=== PATIENT | female | born 2005 | race Caucasian/White ===

== ENCOUNTER 2025-07-26 02:11 | Inpatient (IN) | payer MEDICAID ==
[2025-07-25 19:00] VITALS: BP 106/75; PULSE 75; RESP 16; O2SAT 95
[~2025-07-26] VITALS: Ht 162.6 cm; Wt 62.0 kg
[2025-07-26] VITALS (19 sets, daily range): BP systolic 97–113; BP diastolic 56–79; PULSE 64–96; RESP 16–23; TEMP 98.1–98.5; O2SAT 95–100
[2025-07-26] MEDS ORDERED: PHISODERM TOP SOLN 240ML BTL TOP PRN (02:45)
[2025-07-26] MEDS ORDERED: LIDOCAINE 2%HCL (LOCAL ANESTH.) INJ 20ML MDV IJ PRN (02:45)
[2025-07-26] MEDS ORDERED: WITCH HAZEL-GLYCERIN PAD TOP PRN (02:45)
[2025-07-26] MEDS ORDERED: BUTORPHANOL TARTRATE 2 MG/1 ML VIAL IV PRN ×2 (02:45)
[2025-07-26] MEDS ORDERED: DERMOPLAST 60ML BOTTLE TOP PRN (02:45)
[2025-07-26] MEDS: LACTATED RINGER'S 1,000 ML IV SCH ×2 (03:23→06:00)
[2025-07-26] MEDS: PENICILLIN G POT 5MIL/D5 50ML 50 ML IV ONE (03:23)
[2025-07-26 03:41] LABS: Mean Corpuscular Volume 77.8 fL (80.0-100.0); Nucleated Red Blood Cells % 0.0 %
[2025-07-26 03:43] LABS: Hematocrit 28.9 % (36.0-46.0); Hemoglobin 9.7 g/dL (12.2-16.2); Mean Corpuscular Hemoglobin 26.0 pg (28.0-32.0)
[2025-07-26 04:01] LABS: Urine Protein, UAD Negative (Negative)
[2025-07-26 04:04] LABS: Albumin 3.7 g/dL (3.2-4.8); Anion Gap 12 (5-15); BUN/Creatinine Ratio 13.0 (10.0-20.0); Chloride 107 mmol/L (98-107); Glucose 77 mg/dL (74-106); Potassium 3.9 mmol/L (3.5-5.1); Sodium 139 mmol/L (136-145); Total Protein 6.2 g/dL (5.7-8.2)
[2025-07-26 04:05] LABS: Bilirubin, Total 0.4 mg/dL (0.2-1.0)
[2025-07-26 04:06] LABS: Alanine Aminotransferase < 9 U/L (7-40); Alkaline Phosphatase 197 U/L (46-116); Blood Urea Nitrogen 7 mg/dL (9-23); Calcium 8.7 mg/dL (8.7-10.4); Carbon Dioxide 20 mmol/L (20-31)
[2025-07-26 04:08] LABS: Amphetamine Screen, Urine Neg (NEGATIVE); Barbiturate Scree,Urine Neg (NEGATIVE); Benzodiazephine Screen, Urine Neg (NEGATIVE); Cannabinoid Screen, Urine Neg (NEGATIVE); Cocaine Screen, Urine Neg (NEGATIVE); Opiate Scree,Urine Neg (NEGATIVE); Phencyclidine Screen, Urine Neg (NEGATIVE)
--- NOTE | 2025-07-26 04:12 | DVH ---
MEDICAL RECORDS NUMBER: [id number] PROCEDURE: US OB ULTRASOUND COMP GTR 14 WKS Date: 07/26/2025 03:16 AM HISTORY: NO RECORDS COMPARISON: None TECHNIQUE: Transabdominal scanning is utilized. FINDINGS: Single viable intrauterine is identified with a heart rate of 115 beats per minute. Cephalic presentation is noted. Anterior grade 2 placenta is noted. Amniotic fluid index 11.4 cm is calculated. MVP equals 4.9 cm. anatomy appears unremarkable. Estimated age is 38 weeks 1 day based on this ultrasound. Estimated date of delivery is 08/08/2025. Multiple placental lakes are noted. Largest measures 1.9 cm x 1.8 cm x 8 mm. IMPRESSION: 1. Single viable intrauterine as above.
--- NOTE | 2025-07-26 04:13 | DVH ---
BIOPHYSICAL PROFILE HISTORY: BRADYCARDIA TECHNIQUE: Multiple transabdominal real-time grayscale sonographic images through the gravid uterus of the fetus with duplex Doppler color flow and M-mode spectral analysis. FINDINGS: BIOPHYSICAL PROFILE: breathing score: 2 movement score: 2 tone score: 2 Quantitative MAXX score: 2 (MAXX: 11.4 Cm.) Total score: 8/8 The cervix is not visualized. Single live fetus in cephalic presentation. heart rate 115 beats per minute. Grade 2 anterior placenta without previa or abruption. IMPRESSION: 1. Biophysical profile score: 8/8. heart rate measures 115 beats per minute.
[2025-07-26 04:51] LABS: INR 0.91 (0.9-1.15); Partial Thromboplastin Time 25.0 SEC (24.5-34.5); Prothrombin Time 9.7 sec (9.3-11.8)
--- NOTE | 2025-07-26 04:56 | DVHHP2 ---
OB CC & HPI Date Date of Admission: Jul 26, 2025 Patient Identification: : 1 Para: 0 EDC: Aug 11, 2025 EGA: 37-5/7 weeks Chief Complaints: Reason for admission: rupture of membranes Other reason for admission: Patient apparently was Dr. Asad Dee MDs patient scheduled to deliver in [place]. Patient states she went to [place] where they ruled out ruptured membranes. [place] stated they had no physician for delivering babies and she came here. Evaluated found to have gross ruptured membranes 1 cm 50% mid clear amniotic fluid admitted. History of Present Complaints care with Dr.D Marmolejo no records immediately available. Past Medical History Cardiac: No pertinent Hx Pulmonary: No pertinent Hx Central Nervous System: No pertinent Hx GI: No pertinent Hx Hemotology/Oncology: No pertinent Hx Hepatobiliary: No pertinent Hx Psychiatric: No pertinent Hx Musculoskeletal: No pertinent Hx Rheumotologic: No pertinent Hx Infectious Disease: No peritnent Hx ENT: No pertinent Hx Renal/: No pertinent Hx Endocrine: No pertinent Hx Dermatology: No pertinent Hx Past Surgical History: No pertinent Hx OB History OB History Care: Good Care Ultrasounds: Normal mid trimester US (Per patient normal records pending) Medical Complications: None Allergies: Coded Allergies: Ciprofloxacin (Verified Allergy, Intermediate, 07/26/25) ITCHY MOUTH Uncoded Allergies: Strawberries (Allergy, Unknown, 07/26/25) Current Medications Current Medications Medications (Trade) Dose Ordered Sig/Ayden Route PRN Reason Start Time Stop Time Status Last Admin Lactated Ringer's 1,000 ml @ 125 mls/hr Q8H IV 07/26/25 02:45 07/26/25 03:23 Nalbuphine HCl (Nubain) 10 mg Q4HP PRN IM MODERATE PAIN (4-6 PAIN SCALE) 07/26/25 02:45 Nalbuphine HCl (Nubain) 10 mg Q4HP PRN IV MODERATE PAIN (4-6 PAIN SCALE) 07/26/25 02:45 Penicillin G Potassium [id number] units/Dextrose 50 ml @ 100 mls/hr Q4H IV 07/26/25 06:45 Witch Jimena (Tucks) 1 pad PRN PRN TOP PERINEAL AREA DISCOMFORT 07/26/25 02:45 Sodium Lauryl Sulfate (Phisoderm) 240 ml PRN PRN TOP PERINEAL AREA DISCOMFORT 07/26/25 02:45 Benzocaine (Dermoplast) 1 applic PRN PRN TOP PERINEAL AREA DISCOMFORT 07/26/25 02:45 Butorphanol Tartrate (Stadol Injection) 1 mg Q4HPRN PRN IV MODERATE PAIN (4-6 PAIN SCALE) 07/26/25 02:45 Butorphanol Tartrate (Stadol Injection) 2 mg Q4HPRN PRN IV SEVERE PAIN (7-10 PAIN SCALE) 07/26/25 02:45 Misoprostol (Cytotec) 50 mcg Q4HPRN PRN PO CERVICAL RIPENING 07/26/25 02:45 Lidocaine HCl (Xylocaine) 20 ml ONCE PRN IJ PERINEAL AREA DISCOMFORT 07/26/25 02:45 Family & Social History Family/Social History Blood Type: Unknown Rubella: unknown RPR/VDRL: Unknown GBS Status: Unknown HBsAG: Unknown Review of Systems Constitutional: No symptom reported Ears, Nose, & Throat: No symptom reported Eyes: No symptom reported Pulmonary/Respiratory: No symptom reported Cardiovascular: No symptom reported Gastrointestinal: No symptom reported Genitourinary: No symptom reported Musculoskeletal: No symptom reported Skin: No symptom reported Psychiatric: No symptom reported Endocrine: No symptom reported Hemotologic/Lymphatic: No symptom reported OB Admission Exam Physical Exam HEENT: TMs Normal, Fontanelles Normal, Nasal Mucosa Normal, Eyes non-injected, Oropharynx Normal, PERRLA, Moist Membranes, EOMI Heart: Rhythm Normal Lungs: Clear Abdomen: Non tender Extremities: Normal Reflexes: Normal Cervical Dilatation: 1cm Effacement: 50% Station: -3 Membranes: Ruptured Amniotic Fluid: Clear Heart Rate: 120's Accelerations: Accelerations Present Decelerations: No Decelerations Short Term Variability: Present Senior Care Variability: Average (6-25) Contractions on Admission: 6-10 Minutes Apart Intensity: Mild OB Plan Plan Admitting Diagnosis: Spontaneious Rupture of Membranes, Labor 37-5/7 weeks records not immediately available Dr. Marmolejo her primary OB Plan: Expectant Management MARY ANN SOTO DO Jul 26, 2025 04:56
--- NOTE | 2025-07-26 04:57 | LDN2 ---
Labor and Delivery Note Date 07/26/25 Age 19 1 Para 0 AB 0 EDC Aug 11 EGA 37 5/7 weeks intrauterine Diagnosis Emergent primary low transverse section for prolonged decreased in heart tones slow to recovery remote from delivery cervix 1 cm. 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
--- NOTE | 2025-07-26 05:54 | DVHPN2 ---
Chief Complaints Patient reports: No new complaints, Feels better, Other (Patient is having prolonged decelerations with slow recovery recommended immediate - section as she is remote from delivery 1 cm primary) Nursing reports: No new complaints, No abdominal pain, No chest pain, No cough Objective Medications Current Medications Medications (Trade) Dose Ordered Sig/Ayden Route PRN Reason Start Time Stop Time Status Last Admin Benzocaine (Dermoplast) 1 applic PRN PRN TOP PERINEAL AREA DISCOMFORT 07/26/25 02:45 Butorphanol Tartrate (Stadol Injection) 1 mg Q4HPRN PRN IV MODERATE PAIN (4-6 PAIN SCALE) 07/26/25 02:45 Butorphanol Tartrate (Stadol Injection) 2 mg Q4HPRN PRN IV SEVERE PAIN (7-10 PAIN SCALE) 07/26/25 02:45 Lactated Ringer's 1,000 ml @ 125 mls/hr Q8H IV 07/26/25 02:45 07/26/25 03:23 Lidocaine HCl (Xylocaine) 20 ml ONCE PRN IJ PERINEAL AREA DISCOMFORT 07/26/25 02:45 Misoprostol (Cytotec) 50 mcg Q4HPRN PRN PO CERVICAL RIPENING 07/26/25 02:45 Nalbuphine HCl (Nubain) 10 mg Q4HP PRN IM MODERATE PAIN (4-6 PAIN SCALE) 07/26/25 02:45 Nalbuphine HCl (Nubain) 10 mg Q4HP PRN IV MODERATE PAIN (4-6 PAIN SCALE) 07/26/25 02:45 Penicillin G Potassium [id number] units/Dextrose 50 ml @ 100 mls/hr Q4H IV 07/26/25 06:45 Sodium Lauryl Sulfate (Phisoderm) 240 ml PRN PRN TOP PERINEAL AREA DISCOMFORT 07/26/25 02:45 Witch Jimena (Tucks) 1 pad PRN PRN TOP PERINEAL AREA DISCOMFORT 07/26/25 02:45 General: Normal Head/Eyes: Normal Neck: Normal Lungs: Normal Cardiovascular: Normal Abdominal: Normal (Gravid jeb's 6-1/2 lb) Musculoskeletal: Normal Extremities: Normal Skin: Normal Neurological: Normal Studies Laboratory Tests 07/26/25 02:56 Test 07/26/25 02:56 Range/Units Serum Glucose 77 74-106 mg/dL Ass/Plan Assessment Nonreassuring heart tones prolonged decreased in heart rate with slow return to baseline remote from delivery Plan Emergent -section or crew called stat; Consent we just risks discussed the risks and benefits complications alternatives with patient and her significant other in the room. RN present. We discussed infection bleeding anesthesia acute chronic pain damage to adjacent organs transfusion hep B HIV transfusion reaction my stroke in the future versus scheduled risks benefits complications alternatives to each. All questions answered and encouraged. Patient adamantly wants to proceed with section low transverse primary. MARY ANN SOTO DO Jul 26, 2025 05:54
--- NOTE | 2025-07-26 05:59 | DVHOP2 ---
Operative Report - 2 Report Details Date: 07/26/25 Preop Diagnosis: Prolonged decreased heart rate, remote from delivery, Postop Diagnosis: Same Surgeon: Fabio Landeros Typing Bookkeeper: Braulio beckman Anesthesiologist: SAVANAH Pop Anesthesia: Regional Drains: Parham catheter Implant: None Consent: The patient was informed of the risks and benefits of the procedure. These include but are not limited to complications of anesthesia, postoperative infection, incomplete relief of symptoms, recurrence of symptoms, damage to blood vessels, nerves and tendons, deep venous thrombosis, pulmonary embolism and possible need for repeat surgery in the future. Complications: None Estimated Blood Loss: 600 cc Fluids: See I anesthesia log Findings: vigorous cry and tone Indications for Surgery: Prolonged repetitive decrease in heart tones slow to recovery remote from delivery Name of Procedure Performed Primary low transverse section Procedure Details Procedure Details: Patient taken the operating room placed in sitting position spinal placed without difficulty then prepped draped sterile fashion low Pfannenstiel incision made with scalpel through the skin down to the rectus fascia which was in the midline peritoneum entered with sharp dissection vesicouterine peritoneum dissected off lower uterine segment and a low uterine transverse incision made with scalpel to the current membranes with a hourglassing and ruptured with hemostat found to be in vertex position 1 L +lower lower uterine segment in baby in vertex head torso delivered essentially spontaneously. 62nd delay of cord clamp as had immediate vigorous cry and tone cord gas was sent blood umbilical blood sample was taken. Placenta removed uterus exteriorized cleared of all clots and debris and closed with double layer of 2 of 0 Vicryl. Vesicouterine peritoneum was incorporated into the 2nd layer of the hysterotomy incision closure. We had complete hemostasis this 0.650 cc EBL the gutters cul-de-sac were cleared and cleared of all clots and debris irrigated and then the uterus placed back into the abdomen and pelvis reinspection shows have complete hemostasis normal uterus tubes ovary anatomy. This point instrument lap sponge count correct x1 peritoneum closed with running continuous 2-0 Vicryl rectus fascia then closed with a running continuous PDS Camper's Otoniel's fascia was approximated with 2-0 chromic and then a Prolene subcuticular was used to close the skin as well as benzoin Steri-Strips ABD pad and pressure dressing swallows abdominal binder. Patient taken recovery room infant taken to nursery pediatricians in nursery Specimen: Placenta Condition Good Disposition PACU MARY ANN LANDEROS DO Jul 26, 2025 05:59
[2025-07-26] MEDS ORDERED: MORPHINE SULFATE 4 MG/ML SYR/VIAL IV PRN (06:00)
[2025-07-26] MEDS ORDERED: ONDANSETRON HCL 4 MG/2 ML VIAL IV PRN (06:00)
[2025-07-26] MEDS: TERBUTALINE SULFATE 1 MG/ML 1ML VIAL SC ONE ×2 (06:03→14:31)
[2025-07-26] MEDS ORDERED: PENICILLIN G POTASSIUM 2,500,000 UNITS in D5W 5% 50 ML IV SCH (06:45)
[2025-07-26] MEDS: ceFAZolin 1GM/50ML 50 ML IV SCH (06:49)
[2025-07-26] MEDS ORDERED: MORPHINE SULF PF 5 MG/10 ML VIAL ONE (06:52)
[2025-07-26] MEDS ORDERED: fentaNYL CITRATE 100 MCG/2 ML VL ONE (06:52)
[2025-07-26] MEDS ORDERED: KETOROLAC TROMETH 30 MG/ML 1ML VIAL ONE (07:00)
[2025-07-26] MEDS ORDERED: ONDANSETRON HCL 4 MG/2 ML VIAL ONE ×2 (07:00→07:24)
[2025-07-26] MEDS ORDERED: OXYTOCIN 10UNIT/ML 1ML VIAL ONE (07:25)
[2025-07-26] MEDS ORDERED: PHENYLEPHRINE HCL 10 MG/ML VL ONE (07:29)
[2025-07-26] MEDS: ACETAMINOPHEN IV 1000 MG/100ML (10MG/ML) IV PRN (15:31)
[2025-07-27] VITALS (12 sets, daily range): BP systolic 90–115; BP diastolic 53–76; PULSE 71–98; RESP 15–18; TEMP 98.3–98.6; O2SAT 94–99
[2025-07-27] MEDS: NALBUPHINE HCL 10 MG/1ml INJECTION IV PRN (01:55)
[2025-07-27] MEDS: NALBUPHINE HCL 10 MG/1ml INJECTION IM PRN (01:55)
--- NOTE | 2025-07-27 05:47 | DVHPN2 ---
Chief Complaints Patient reports: No new complaints, Feels better, Other (Postop day 1 primary low transverse ) Nursing reports: No new complaints, No abdominal pain, No chest pain, No cough Objective Vitals Vital Signs Date Time Temp Pulse Resp B/P (MAP) Pulse Ox O2 Delivery O2 Flow Rate FiO2 07/27/25 05:22 98 16 95 07/27/25 03:00 98.6 99/65 (76) 98.6 07/26/25 19:53 Room Air 07/26/25 07:41 97 Medications Current Medications Medications (Trade) Dose Ordered Sig/Ayden Route PRN Reason Start Time Stop Time Status Last Admin Acetaminophen (Ofirmev) 1,000 mg Q8HP PRN IV PAIN SCALE 1-3 OR TEMP>100.4 07/26/25 11:30 07/26/25 23:36 Lactated Ringer's 1,000 ml @ 125 mls/hr Q8H IV 07/26/25 06:00 Morphine Sulfate 2 mg Q4HP PRN IV SEVERE PAIN (7-10 PAIN SCALE) 07/26/25 06:00 Ondansetron HCl (Zofran) 4 mg Q4HP PRN IV NAUSEA / VOMITING 07/26/25 06:00 General: Normal Head/Eyes: Normal Neck: Normal Lungs: Normal Cardiovascular: Normal Abdominal: Normal (Wound clean dry intact) Musculoskeletal: Normal Extremities: Normal Skin: Normal Neurological: Normal Studies Laboratory Tests 07/26/25 02:56 Test 07/26/25 02:56 Range/Units Serum Glucose 77 74-106 mg/dL Ass/Plan Assessment Postop day 2 primary section secondary Nonreassuring heart tones prolonged decreased in heart rate with slow return to baseline remote from delivery Plan Advanced care see orders MARY ANN SOTO DO Jul 27, 2025 05:47
[2025-07-27 07:21] LABS: Hematocrit 25.9 % (36.0-46.0); Hemoglobin 8.7 g/dL (12.2-16.2); Mean Corpuscular Hemoglobin 26.1 pg (28.0-32.0); Mean Corpuscular Volume 77.7 fL (80.0-100.0); Nucleated Red Blood Cells % 0.1 %
[2025-07-27] MEDS ORDERED: HYDROcodone-ACET 5/325MG TAB PO PRN (10:30)
[2025-07-27] MEDS ORDERED: ACETAMINOPHEN IV 1000 MG/100ML (10MG/ML) IV PRN (10:45)
[2025-07-27] MEDS: HYDROcodone-ACET 5/325MG TAB PO PRN (10:45)
[2025-07-27] MEDS: SIMETHICONE 80 MG CHEWABLE TABLET PO SCH (12:00)
[2025-07-27] MEDS: IBUPROFEN 800 MG TAB PO PRN (13:48)
[2025-07-27] MEDS ORDERED: DOCU-265 PO (19:27)
[2025-07-27] MEDS ORDERED: IBUP-1455 PO (19:27)
[2025-07-27] MEDS ORDERED: FER325T PO (19:27)
[2025-07-27] MEDS ORDERED: HYDR-4902 PO (19:27)
[2025-07-27] MEDS ORDERED: ASCO500T11 PO (19:27)
[2025-07-27] MEDS ORDERED: PREN-96 PO (19:27)
[2025-07-27] MEDS: DOCUSATE SOD 100 MG CAP PO SCH (22:07)
--- NOTE | 2025-07-28 04:46 | DVHPN2 ---
Progress Note Date Seen: Jul 28, 2025 Subjective S: bleeding is less, eating food without issues, denies lightheaded/dizziness, pain well controlled with oral medications, no concerns with urinating, passing flatus, no BM yet, ambulating well, pumping breast milk for baby in NICU vital signs Vital Sign Date Time Temp Pulse Resp B/P (MAP) Pulse Ox O2 Delivery O2 Flow Rate FiO2 07/27/25 23:00 98.3 77 15 102/67 (79) 96 98.3 07/27/25 19:00 Room Air 07/27/25 07:00 0.0 07/26/25 07:41 97 Total Intake and Output 07/27/25 07/27/25 07/28/25 15:00 23:00 07:00 Output Total 1100 ml 900 ml Balance -1100 ml -900 ml medications Current Medications Medications Dose Ordered Sig/Ayden Route Start Time Stop Time Status Last Admin Dose Admin Lactated Ringer's 1,000 ml @ 125 mls/hr Q8H IV 07/26/25 02:45 07/27/25 04:33 125 MLS/HR Nalbuphine HCl 10 mg Q4HP PRN IM 07/26/25 02:45 Nalbuphine HCl 10 mg Q4HP PRN IV 07/26/25 02:45 Witch Jimena 1 pad PRN PRN TOP 07/26/25 02:45 Sodium Lauryl Sulfate 240 ml PRN PRN TOP 07/26/25 02:45 Benzocaine 1 applic PRN PRN TOP 07/26/25 02:45 Morphine Sulfate 2 mg Q4HP PRN IV 07/26/25 06:00 Hold Ondansetron HCl 4 mg Q4HP PRN IV 07/26/25 06:00 Docusate Sodium 100 mg Q12HR PO 07/27/25 22:00 07/27/25 22:07 100 MG Dimethicone 80 mg QID PO 07/27/25 12:00 07/27/25 22:07 80 MG Ibuprofen 800 mg Q8HP PRN PO 07/27/25 10:30 07/27/25 22:07 800 MG Acetaminophen/ Hydrocodone Bitart 1 tab Q4HPRN PRN PO 07/27/25 10:30 07/27/25 15:52 1 TAB Acetaminophen/ Hydrocodone Bitart 2 tab Q4HPRN PRN PO 07/27/25 10:30 Acetaminophen 1,000 mg Q8HP PRN IV 07/27/25 10:45 laboratory and microbiology Laboratory Tests 07/27/25 06:10 07/26/25 02:56 Test 07/26/25 02:56 Range/Units Serum Glucose 77 74-106 mg/dL Objective O: VSS Chest: heart sounds normal and lung sounds clear bilaterally Abd: soft, non-tender, fundus 1-U/firm/midline, active bowel sounds, no rebound or guarding Incision: sylke dressing open to air, clean/dry/intact Ext: Non-tender, No edema, 2+ BLE DTRs Lochia: minimal See lab results Problems(with codes): (1) Precipitous drop in hematocrit (2) S/P primary low transverse Assessment/Plan A: 19yo now POD#2 s/p primary Anemia Rh+ Rubella Immune Pumping breast milk, baby in NICU at [facility] P: D/C home today Rx sent to pharmacy precautions and preeclampsia warning signs reviewed F/U with [facility] OB office in 1 week Plan discussed with: Patient Visit Coding OBGYN Date of Service: Jul 28, 2025 Billing Provider: CHADD HARTMAN CNM PHARMACY TECHNOLOGIST Common Visit Codes: [id number] INP/OBS CARE(HIGH) CHADD HARTMAN CNM Jul 28, 2025 04:46
--- NOTE | 2025-07-28 04:49 | DVHDS2 ---
Obstetrics Discharge Summary Obstetrics Discharge Summary Date of Admission: Jul 26, 2025 Date of Discharge: Jul 28, 2025 Reason For Admission: Others (SROM) Procedures: NST, Ultrasound Intrapartum Procedures: (primary LTCS) Procedures: Antibiotics, Hct/date: (07/27/25), Hgb/date: (07/27/25) Operative Complicat: None Discharge Diagnosis: Term -Delivered Discharge Information: Activity (as tolerated, no heavy lifting and nothing in the vagina for 6 weeks), Diet (Routine), Medications (Rx sent), Instructions (Routine), Discharge to (Home), Accompanied by (family), Discarge date (07/28/25) Visit Coding OBGYN Date of Service: Jul 28, 2025 Billing Provider: CHADD HARTMAN CNM PROJECT MANAGEMENT PROFESSOR Common Visit Codes: 84704-HPN/OBS DISCH DAY <30MIN CHADD HARTMAN CNM Jul 28, 2025 04:49
[2025-07-28 07:00] VITALS: BP 100/66; PULSE 80; RESP 16; TEMP 98.1; O2SAT 96
[2025-07-28] MEDS ORDERED: ceFAZolin 2 GM/D5W50ml 50 ML IV ONE (07:18)
== END 2025-07-28 09:42 | disposition home or self-care (01) | DRG 540 ==
LOC: LDRP 02:11 → OBSVTOIN 02:25 → LDRP 02:45
PROVIDERS: ADMIT Obstetrics & Gynecology; ATTEND Obstetrics & Gynecology
PROC: 10D00Z1 Extraction of Products of Conception, Low, Open Approach (ICD-10-PCS; principal; 2025-07-26 06:54)
DX: O76 Abnormality in fetal heart rate and rhythm complicating labor and delivery (principal); R71.0 Precipitous drop in hematocrit; Z37.0 Single live birth; O99.02 Anemia complicating childbirth; Z3A.37 37 weeks gestation of pregnancy
CPT/HCPCS: 36415; 59025; 76805; 76819; 80053; 80307; 81001; 85025; 85610; 85730; 86703; 86762; 86780; 86803; 86850; 86900; 86901; 87340; 94760; 94762; 96361; 96366; G0378; J0131; J1100; J1885; J2405; J2540; J2590; J7060

== ENCOUNTER 2025-08-28 14:10 | Emergency (ER) | payer MEDICAID ==
[~2025-08-28] VITALS: Ht 154.9 cm; Wt 51.6 kg
[~2025-08-28 14:10] MED LIST: ASCO500T11 PO; DOCU-265 PO; FER325T PO; HYDR-4902 PO; IBUP-1455 PO; PREN-96 PO
--- NOTE | 2025-08-28 15:28 | ED.PDOC ---
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 19-year-old female five weeks post by presents to the emergency department for few day history of foul odor and thick discharge from the vagina and today she noticed some vaginal bleed. Patient is concerned. Patient denies any nausea or vomiting or fever. Patient has some mild supra pubic tenderness to palpation. Denies any history of STDs. Past Medical History: Denies any Past Surgical History: REVIEW OF SYSTEMS: CONSTITUTIONAL: Denies acute: fever, diaphoresis, chills, generalized weakness. HEAD: Denies acute: headache, photophobia Eyes: Denies acute: Double vision, vision loss, eye pain, eye discharge. EARS: Denies acute: tinnitus, hearing loss, ear discharge, ear pain, THROAT: Denies acute: sore throat, swelling, difficulty swallowing , pain with swallowi ng, change in voice. NECK: Denies acute: neck pain, neck swelling, stiff neck. HEART: Denies acute : chest pain, palpitations, LUNGS: Denies acute: SOB, wheezing, cough, hemoptysis ABDOMEN: Denies acute: Nausea, Vomiting, diarrhea, melena , hematemesis, hematochezia SKIN: Denies acute: rash, redness, lesions, itchiness. EXTREMITIES: Denies acute: calf pain, numbness, tingling, weakness, denies pain in extremity. Denies acute: Low back pain. Neuro: Denies acute: focal neurological deficit, motor or sensory focal neurological deficit, tremors, seizure like activity, confusion, dizziness, change in mental status, loss of bowel or bladder function, cauda equina like symptoms. : Denies acute: dysuria, hematuria, flank pain, increase in urinary frequency. PSYCH: Denies acute: hallucination, suicidal ideation, homicidal ideation. FEMALE: Denies acute: PHYSICAL EXAM: General: -----mild---acute distress, awake and alert. Head: normocephalic, atraumatic. No raccoon's eyes, no hugo sign. Neck: supple, trachea is midline, no swelling. Throat: Normal phonation. Eyes:, no erythema, no purulent discharge, no proptosis, no icterus. Heart: regular rate, regular rhythm, no significant murmur appreciated. Lungs: no apparent respiratory distress, Able to speak in full sentences. No wheezing, no rhonchi, no crackles. No stridors Clear to auscultation bilaterally. Abdomen: Suprapubic tender to palpation, non distended, soft, no guarding, no rebound, + bowel sounds. Neuro: Awake, Alert, oriented to name, self, situation, follows commands GCS=15. Speech is normal. Skin: no petechia, no purpura, no cyanosis, non-pale, not jaundice. Lower extremities: --no - Pitting edema no deformity, no focal swelling, no calf TTP. Makes eye contact. moves all four extremities. Face: no apparent facial droop. Ambulating in the ED independently. No nuchal rigidity, Kernig's sign, Brudzinski's sign, no meningeal signs. ED COURSE: DISCLAIMER: This medical document was created using an electronic medical record system with voice recognition software and computerized dictation system. Although this document has been carefully reviewed, there might still be some phonetic and typographical errors. Occasional wrong-word or "sound-alike" substitutions may have occurred due to the inherent limitations of voice recognition software. These areas are purely typographical due to imperfections of the software programs and do not reflect any compromise in the patient's medical care. Please read the chart carefully and recognize, using context, where these substitutions have occurred. Chief Complaint: Vaginal Discharge Time Seen by MD: 15:09 Reviewed Notes: Allergies Allergies: Coded Allergies: Ciprofloxacin (Verified Allergy, Intermediate, 07/26/25) ITCHY MOUTH, PT NOT POSITIVE REGARDING IF THIS IS THE ANTIBIOTIC SHE HAD RXN TO Uncoded Allergies: Strawberries (Allergy, Unknown, 07/26/25) PT NOW STATING ALLERGIC TO ALL FRUITS Home Meds Active Scripts Vit W/ Ferrous Fumara ( One Daily) Daily Tab, 1 TAB PO DAILY, #90 TAB 3 Refills Prov:CHADD [facility] 07/27/25 Ascorbic Acid (VITAMIN C TABLET) 500 Mg Tb, 1 TAB PO DAILY, #30 TAB 3 Refills Prov:CHADD [facility] 07/27/25 Ferrous Sulfate (FERROUS SULFATE) 325 Mg Tb, 1 TAB PO DAILY, #30 TAB 3 Refills Prov:CHADD [facility]ART[facility] 07/27/25 Ibuprofen Micronized (Ibuprofen) 800 Mg Tab, 800 MG PO Q8HP PRN for 30 Days, #90 TAB Prov:CHADD [facility] 07/27/25 Hydrocodone-Acetaminophen (Hydrocodone Bitartrate/AC 5-325 mg) 1 Tab Tab, 1 TAB PO Q4HPRN PRN for 6 Days, #30 TAB Prov:CHADD [facility] 07/27/25 Docusate Sodium (Docusate Sodium) 100 Mg Cap, 100 MG PO Q12HR for 30 Days, #60 CAP 2 Refills Prov:CHADD [facility] 07/27/25 Information Source: Patient X-Ray, Labs, Meds, VS Vital Signs Date Time Temp Pulse Resp B/P (MAP) Pulse Ox O2 Delivery O2 Flow Rate FiO2 08/28/25 20:04 62 18 99/72 (81) 97 08/28/25 20:04 97 Room Air 0 08/28/25 17:20 99.0 74 15 88/49 (62) 98 99.0 08/28/25 17:20 74 98 Room Air 08/28/25 14:12 97.5 85 12 137/78 97 97.5 Lab Test 08/28/25 16:40 08/28/25 15:20 Range/Units Urine Color Yellow Yellow Urine Clarity Clear Clear Urine pH 6.0 5.0-9.0 Urine Specific Mart 1.028 1.001-1.035 Urine Protein Negative Negative Urine Ketones Trace Negative Urine Blood 2+ H Negative /uL Urine Nitrite Negative Negative Urine Bilirubin Negative Negative Urine Urobilinogen Normal Negative mg/dL Urine Leukocyte Esterase Negative Negative /uL Urine RBC 24 0 - 4 /hpf Urine Microscopic WBC 4 0-5 /HPF Urine Squamous Epithelial Cells Few <5 /hpf Urine Bacteria None seen None Seen /hpf Urine Mucus Few None Seen Urine Glucose Normal Normal mg/dL Chlamydia trachomatis (JESSICA) Pending Neisseria gonorrhoeae (JESSICA) Pending White Blood Count 4.2 L 4.4-10.8 10^3/uL Red Blood Count 4.93 4.0-5.20 10^6/uL Hemoglobin 12.8 12.2-16.2 g/dL Hematocrit 39.5 36.0-46.0 % Mean Corpuscular Volume 80.1 80.0-100.0 fL Mean Corpuscular Hemoglobin 25.9 L 28.0-32.0 pg Mean Corpuscular Hemoglobin Concent 32.3 32.0-36.0 g/dL Red Cell Distribution Width 17.7 H 11.8-14.3 % Platelet Count 269 140-450 10^3/uL Mean Platelet Volume 8.2 6.9-10.8 fL Neutrophils (%) (Auto) 57.5 37.0-80.0 % Lymphocytes (%) (Auto) 32.8 10.0-50.0 % Monocytes (%) (Auto) 6.7 0.0-12.0 % Eosinophils (%) (Auto) 2.1 0.0-7.0 % Basophils (%) (Auto) 0.9 0.0-2.0 % Neutrophils # (Auto) 2.4 1.6-8.6 10 ^3/uL Lymphocytes # (Auto) 1.4 0.4-5.4 10 ^3/uL Monocytes # (Auto) 0.3 0-1.3 10 ^3/uL Eosinophils # (Auto) 0.1 0-0.8 10 ^3/uL Basophils # (Auto) 0 0-0.2 10 ^3/uL Nucleated Red Blood Cells 0.1 % Sodium Level 144 136-145 mmol/L Potassium Level 3.8 3.5-5.1 mmol/L Chloride Level 106 98-107 mmol/L Carbon Dioxide Level 26 20-31 mmol/L Anion Gap 12 5-15 Blood Urea Nitrogen 8 L 9-23 mg/dL Creatinine 0.90 0.550-1.02 mg/dL Glomerular Filtration Rate Calc 94 >90 mL/min BUN/Creatinine Ratio 8.9 L 10.0-20.0 Serum Glucose 82 74-106 mg/dL Lactic Acid Level 1.9 0.4-2.0 mmol/L Calcium Level 9.2 8.7-10.4 mg/dL Total Bilirubin 0.5 0.2-1.0 mg/dL Aspartate Amino Transferase (AST) 23 13-40 U/L Alanine Aminotransferase (ALT) 22 7-40 U/L Alkaline Phosphatase 96 46-116 U/L Total Protein 7.1 5.7-8.2 g/dL Albumin 4.5 3.2-4.8 g/dL Current Medications Medications (Trade) Dose Ordered Sig/Ayden Route Start Time Stop Time Status Last Admin Sodium Chloride 1,000 ml @ 1,000 mls/hr Q1H ONCE IV 08/28/25 17:45 08/28/25 18:44 DC 08/28/25 18:54 Ceftriaxone Sodium 50 ml @ 100 mls/hr ONCE ONCE IV 08/28/25 17:45 08/28/25 18:14 DC 08/28/25 18:54 Metronidazole 100 ml @ 100 mls/hr ONCE ONCE IV 08/28/25 17:45 08/28/25 18:44 DC 08/28/25 19:16 [place] [id number] Ph: [phone] DIAGNOSTIC IMAGING Diagnostic Imaging Report : [id number] Signed PATIENT: JOSE MCCABE ACCT: [id number] UNIT: [id number] : 2005 LOC: ER ROOM / BED: / AGE / SEX: 19 / F ADM STATUS: REG ER SERVICE 1509 ORDERING PHYSICIAN: GÓMEZ BENTON DO PROCEDURE(s): PELUS - PELVIC REASON: vag bleed post ORDER NUMBER(s): [id number], ACCESSION NUMBER(s): [id number] PELVIC Indication: 19 years old, Female; vag bleed post . Comparison: None TECHNIQUE: Ultrasound examination of the female pelvis was performed transabdo minally and transvaginally. Color and pulsed wave Doppler imaging was also utilized to evaluate ovarian blood flow. FINDINGS: Uterus: 9.2 cm Endometrium: 6 mm Right ovary: 2.2 cm Left ovary: 2.3 cm Doppler Color Flow: Preserved arterial waveforms. 1 cm right ovarian cyst /follicle. IMPRESSION: No acute sonographic findings in the pelvis. ATED BY: MEGHANN GIANG MD DICTATED DATE/TIME: 08/28/251551 SIGNED BY: MEGHANN GIANG MD SIGNED DATE/TIME: 08/28/251551 CC: Time of 1ST Reevaluation: 22:12 Reevaluation 1ST: Improved Patient Education/Counseling: Diagnosis, Treatment Family Education/Counseling: Other Comments Patient decided to leave AMA. She refused pelvic exam. Departure 1 Departure Time of Disposition: 22:05 Impression: Primary Impression: Vaginal discharge Additional Impression: Hypotensive episode Disposition: LEFT AGAINST MEDICAL ADVICE Condition: Guarded Additional Instructions: Please follow up with the OB Gyne doctor WILLIS. Return to the emergency department if you change your mind. Absolute pelvic rest. Avoid breast-feeding in the next 24 hours from the time you have received metronidazole IV antibiotics here in the ED. Call the hospital to check on your status of the chlamydia and gonorrhea testing. Discharged With: Self I personally scribed for GÓMEZ BENTON DO ([email or web address]) on 08/28/25 at 22:16. Electronically submitted by Delicia Carmichael ([email or web address]). GÓMEZ BENTON DO Aug 28, 2025 15:28
[2025-08-28 15:36] LABS: Hematocrit 39.5 % (36.0-46.0); Hemoglobin 12.8 g/dL (12.2-16.2); Mean Corpuscular Hemoglobin 25.9 pg (28.0-32.0); Nucleated Red Blood Cells % 0.1 %
[2025-08-28 15:38] LABS: Mean Corpuscular Volume 80.1 fL (80.0-100.0)
[2025-08-28 15:50] LABS: Alanine Aminotransferase 22 U/L (7-40); Albumin 4.5 g/dL (3.2-4.8); Alkaline Phosphatase 96 U/L (46-116); Anion Gap 12 (5-15); BUN/Creatinine Ratio 8.9 (10.0-20.0); Bilirubin, Total 0.5 mg/dL (0.2-1.0); Blood Urea Nitrogen 8 mg/dL (9-23); Calcium 9.2 mg/dL (8.7-10.4); Carbon Dioxide 26 mmol/L (20-31); Chloride 106 mmol/L (98-107); Glucose 82 mg/dL (74-106); Potassium 3.8 mmol/L (3.5-5.1); Sodium 144 mmol/L (136-145); Total Protein 7.1 g/dL (5.7-8.2)
--- NOTE | 2025-08-28 15:55 | DVH ---
US PELVIC Indication: 19 years old, Female; vag bleed post . Comparison: None TECHNIQUE: Ultrasound examination of the female pelvis was performed transabdominally and transvaginally. Color and pulsed wave Doppler imaging was also utilized to evaluate ovarian blood flow. FINDINGS: Uterus: 9.2 cm Endometrium: 6 mm Right ovary: 2.2 cm Left ovary: 2.3 cm Doppler Color Flow: Preserved arterial waveforms. 1 cm right ovarian cyst /follicle. IMPRESSION: No acute sonographic findings in the pelvis.
[2025-08-28 17:20] VITALS: TEMP 99
[2025-08-28 17:23] LABS: Urine Protein, UAD Negative (Negative)
[2025-08-28] MEDS: SODIUM CHLORIDE 0.9% 1,000 ML IV ONE (18:54)
[2025-08-28 20:04] VITALS: BP 99/72; PULSE 62; RESP 18; O2SAT 97
[2025-08-30 23:07] LABS: Chlamydia Trachomatis, NAA Negative (Negative); Neisseria gonorrhoeae, NAA Negative (Negative)
== END 2025-08-28 22:25 | disposition left against medical advice (07) ==
LOC: ER 14:10
DX: N89.8 Other specified noninflammatory disorders of vagina (principal); I95.9 Hypotension, unspecified; Z88.1 Allergy status to other antibiotic agents; Z91.018 Allergy to other foods
CPT/HCPCS: 36415; 76856; 80053; 81001; 83605; 85025; 87491; 87591; 96365; 96368; 99285; J0696; J3490; J7030